=== PATIENT | male | born 1970 | race African-American/Black ===

== ENCOUNTER → 2016-07-18 | Outpatient (REF) | payer OTHER ==
[2016-07-18 16:04] LABS: ALBUMIN 3.9 GM/DL (3.2-5.2); ALBUMIN/GLOBULIN RATIO 0.98 (1.00-1.93); ALKALINE PHOSPHATASE 108 U/L (45-117); ALT/SGPT 50 U/L (12-78); ANION GAP 6 MEQ/L (8-16); AST/SGOT 20 U/L (15-37); BILIRUBIN,TOTAL 0.5 MG/DL (0.2-1.0); BLOOD UREA NITROGEN 14 MG/DL (7-18); CALCIUM LEVEL 9.5 MG/DL (8.5-10.1); CARBON DIOXIDE LEVEL 33 MEQ/L (21-32); CHLORIDE LEVEL 101 MEQ/L (98-107); CREATININE FOR GFR 1.33 MG/DL (0.70-1.30); GLOMERULAR FILTRATION RATE > 60.0 (>60); GLUCOSE, FASTING 151 MG/DL (70-105); POTASSIUM SERUM 3.7 MEQ/L (3.5-5.1); SODIUM LEVEL 140 MEQ/L (136-145); TOTAL PROTEIN 7.9 GM/DL (6.4-8.2)
[2016-07-21 00:06] LABS: %CD3+CD4+CD8- 23.5 % (Not Estab.); %CD3+CD4-CD8+ 54.6 % (Not Estab.); %CD3+CD4-CD8- 1.1 % (Not Estab.); ABS CD3+CD4+CD8+ 31 /uL (Not Estab.); ABS CD3+CD4+CD8- 729 /uL (Not Estab.); ABS CD3+CD4-CD8+ 1693 /uL (Not Estab.); ABS CD3+CD4-CD8- 34 /uL (Not Estab.); CD4/CD8 NYSDOH RATIO 0.43 (Not Estab.); Eosinophils 1 % (.); HCT 45.6 % (37.5-51.0); HGB 15.3 g/dL (12.6-17.7); Monocytes 7 % (.); Neutrophils 34 % (.); WBC 5.3 x10E3/uL (3.4-10.8)
== END ==
LOC: M SFHCPLAZ 13:07
PROVIDERS: ATTEND Internal Medicine Infectious Disease
DX: B20 Human immunodeficiency virus [HIV] disease (principal)
CPT/HCPCS: 36415; 80053; 86360; 87536; 90733; G0463

== ENCOUNTER → 2016-12-21 | Outpatient (REF) | payer OTHER ==
[2016-12-21 14:38] LABS: ALBUMIN 4.2 GM/DL (3.2-5.2); ALBUMIN/GLOBULIN RATIO 1.14 (1.00-1.93); ALKALINE PHOSPHATASE 107 U/L (45-117); ALT/SGPT 50 U/L (12-78); ANION GAP 5 MEQ/L (8-16); AST/SGOT 19 U/L (15-37); BILIRUBIN,TOTAL 0.6 MG/DL (0.2-1.0); BLOOD UREA NITROGEN 15 MG/DL (7-18); CALCIUM LEVEL 9.3 MG/DL (8.5-10.1); CARBON DIOXIDE LEVEL 34 MEQ/L (21-32); CHLORIDE LEVEL 102 MEQ/L (98-107); CREATININE FOR GFR 1.25 MG/DL (0.70-1.30); GLOMERULAR FILTRATION RATE > 60.0 (>60); GLUCOSE, FASTING 114 MG/DL (70-105); POTASSIUM SERUM 3.6 MEQ/L (3.5-5.1); SODIUM LEVEL 141 MEQ/L (136-145); TOTAL PROTEIN 7.9 GM/DL (6.4-8.2)
[2016-12-23 00:07] LABS: %CD3+CD4+CD8+ 0.3 % (Not Estab.); %CD3+CD4+CD8- 22.5 % (Not Estab.); %CD3+CD4-CD8+ 55.5 % (Not Estab.); %CD3+CD4-CD8- 1.2 % (Not Estab.); ABS CD3+CD4+CD8+ 8 /uL (Not Estab.); ABS CD3+CD4+CD8- 630 /uL (Not Estab.); ABS CD3+CD4-CD8+ 1554 /uL (Not Estab.); ABS CD3+CD4-CD8- 34 /uL (Not Estab.); CD4/CD8 NYSDOH RATIO 0.41 (Not Estab.); Eosinophils 1 % (.); HCT 42.9 % (37.5-51.0); HGB 14.7 g/dL (12.6-17.7); Monocytes 7 % (.); Neutrophils 36 % (.)
== END ==
LOC: M SFHCPLAZ 11:53
PROVIDERS: ATTEND Internal Medicine Infectious Disease
DX: B20 Human immunodeficiency virus [HIV] disease (principal)
CPT/HCPCS: 80053; 86360; 87536; 90636; G0463

== ENCOUNTER → 2017-06-14 | Outpatient (REF) | payer OTHER ==
[2017-06-14 13:32] LABS: ALBUMIN 3.9 GM/DL (3.2-5.2); ALKALINE PHOSPHATASE 119 U/L (45-117); ALT/SGPT 51 U/L (12-78); ANION GAP 9 MEQ/L (8-16); AST/SGOT 21 U/L (7-37); BILIRUBIN,TOTAL 0.7 MG/DL (0.2-1.0); BLOOD UREA NITROGEN 14 MG/DL (7-18); CALCIUM LEVEL 9.2 MG/DL (8.5-10.1); CARBON DIOXIDE LEVEL 29 MEQ/L (21-32); CHLORIDE LEVEL 101 MEQ/L (98-107); CREATININE FOR GFR 1.32 MG/DL (0.70-1.30); GLOMERULAR FILTRATION RATE > 60.0 (>60); GLUCOSE, FASTING 213 MG/DL (70-100); POTASSIUM SERUM 3.9 MEQ/L (3.5-5.1); SODIUM LEVEL 139 MEQ/L (136-145); TOTAL PROTEIN 7.8 GM/DL (6.4-8.2)
[2017-06-14 14:33] LABS: APPEARANCE, URINE CLEAR (CLEAR); BACTERIA, URINE AUTO NEGATIVE (NEGATIVE); BILIRUBIN, URINE AUTO NEGATIVE (NEGATIVE); BLOOD, URINE BLOOD NEGATIVE (NEGATIVE); COLOR, URINE YELLOW (YELLOW); GLUCOSE, URINE (UA) AUTO NEGATIVE (NEGATIVE); KETONE, URINE AUTO NEGATIVE (NEGATIVE); LEUKOCYTE ESTERASE, URINE AUTO NEGATIVE (NEGATIVE); MUCUS, URINE SMALL (NEGATIVE); NITRITE, URINE AUTO NEGATIVE (NEGATIVE); PROTEIN, URINE AUTO NEGATIVE (NEGATIVE); RBC, URINE AUTO 2 /HPF (0-3); SPECIFIC GRAVITY URINE AUTO 1.013 (1.002-1.035); SQUAMOUS EPITHELIAL CELL UR AU 0 /HPF (0-6); UROBILINOGEN, URINE AUTO 0.2 mg/dL (0.0-2.0); WBC, URINE AUTO 0 /HPF (0-3)
[2017-06-14 16:31] LABS: CHLAMYDIA DNA AMPLIFICATION NEGATIVE (NEGATIVE); GC DNA AMPLIFICATION NEGATIVE (NEGATIVE)
[2017-06-16 15:11] LABS: QUANTIFERON GOLD TB Negative (Negative); TB Test (QFT) Antigen 0.03 IU/mL (.); TB Test (QFT) Antigen Minus Ni <0.01 IU/mL (.); TB Test (QFT) Mitogen >10.00 IU/mL (.); TB Test (QFT) Nil 0.04 IU/mL (.)
[2017-06-19 00:06] LABS: % CD8 Pos Lymph 57.5 % (12.0-35.5); ABS Lymphs 2.8 x10E3/uL (0.7-3.1); ABS Monocytes 0.3 x10E3/uL (0.1-0.9); ABS Neutophils 1.8 x10E3/uL (1.4-7.0); Abs CD4 Helper 644 /uL (359-1519); Abs CD8 Suppres 1610 /uL (109-897); Eosinophils 1 % (Not Estab.); HCT 43.1 % (37.5-51.0); HIV-1 RNA PCR QUANT 2 LC550285 20 copies/mL (.); HIV-1 RNA PCR QUANT 3 LC550285 1.301 (.); Immature Grans 0 % (Not Estab.); Lymphocytes 56 % (Not Estab.); MCH 30.5 pg (26.6-33.0); MCHC 34.8 g/dL (31.5-35.7); MCV 88 fL (79-97); Monocytes 7 % (Not Estab.); Neutrophils 36 % (Not Estab.); Platelets 162 x10E3/uL (150-379); RBC 4.92 x10E6/uL (4.14-5.80); RDW 14.6 % (12.3-15.4)
== END ==
LOC: M SFHCPLAZ 08:42
DX: B20 Human immunodeficiency virus [HIV] disease (principal)
CPT/HCPCS: 80053

== ENCOUNTER → 2017-12-17 | Outpatient (REF) | payer OTHER ==
[2017-12-17 22:54] LABS: ALBUMIN 3.7 GM/DL (3.2-5.2); ALKALINE PHOSPHATASE 108 U/L (45-117); ALT/SGPT 48 U/L (12-78); ANION GAP 9 MEQ/L (8-16); AST/SGOT 18 U/L (7-37); BILIRUBIN,TOTAL 0.5 MG/DL (0.2-1.0); BLOOD UREA NITROGEN 13 MG/DL (7-18); CALCIUM LEVEL 8.8 MG/DL (8.5-10.1); CARBON DIOXIDE LEVEL 29 MEQ/L (21-32); CHLORIDE LEVEL 102 MEQ/L (98-107); CREATININE FOR GFR 1.23 MG/DL (0.70-1.30); GLOMERULAR FILTRATION RATE > 60.0 (>60); GLUCOSE, FASTING 142 MG/DL (70-100); POTASSIUM SERUM 3.9 MEQ/L (3.5-5.1); SODIUM LEVEL 140 MEQ/L (136-145); TOTAL PROTEIN 7.6 GM/DL (6.4-8.2)
[2017-12-17 23:37] LABS: ALBUMIN/GLOBULIN RATIO 0.95 (1.00-1.93)
[2017-12-19 14:18] LABS: % CD8 Pos Lymph 58.2 % (12.0-35.5); %CD4 Pos Lymphs 23.5 % (30.8-58.5); ABS Lymphs 2.6 x10E3/uL (0.7-3.1); ABS Monocytes 0.3 x10E3/uL (0.1-0.9); ABS Neutophils 1.3 x10E3/uL (1.4-7.0); Abs CD4 Helper 611 /uL (359-1519); Abs CD8 Suppres 1513 /uL (109-897); Eosinophils 1 % (Not Estab.); HCT 40.1 % (37.5-51.0); HGB 14.1 g/dL (13.0-17.7); HIV-1 RNA PCR QUANT 2 LC550285 <20 copies/mL (.); Immature Grans 0 % (Not Estab.); Lymphocytes 61 % (Not Estab.); MCH 29.8 pg (26.6-33.0); MCHC 35.2 g/dL (31.5-35.7); MCV 85 fL (79-97); Monocytes 7 % (Not Estab.); Neutrophils 31 % (Not Estab.); Platelets 206 x10E3/uL (150-379); RBC 4.73 x10E6/uL (4.14-5.80); RDW 13.7 % (12.3-15.4); WBC 4.3 x10E3/uL (3.4-10.8)
== END ==
LOC: M SFHCPLAZ 11:48
DX: B20 Human immunodeficiency virus [HIV] disease (principal)